=== PATIENT | female | born 1975 | race Caucasian/White ===

== ENCOUNTER 2018-12-12 12:19 | Inpatient (IN) | payer MEDICAID ==
[~2018-12-12] VITALS: Ht 167.6 cm; Wt 64.9 kg
[2018-12-12 12:24] VITALS: Ht 167.6 cm; Wt 64.9 kg
--- NOTE | 2018-12-12 12:45 | NUR ---
PT PRESENTS TO ED WITH C/O OF ABDOMINAL PAIN SINCE FRIDAY. PT STS SHE ATE ICE CREAM ON FRIDAY AND THAT IS WHEN PAIN BEGAN. PT STS PAIN FEELS LIKE BURNING AND IT RADIATES FROM ABDOMEN TO EPIGASTRIC AREA AND BACKSIDE. PT REPORTS HAVING DECREASE IN APPETITE AND FEELING NAUSEOUS. PT STS SHE ATE BEFORE SHE CAME TO ED. PT REPORTS BEING SEEN FOR SIMILAR PAIN AND BEING DIAGNOSISED WITH GALLSTONES. AMBULATED TO FROM TRIAGE WITH STEADY GAIT, AAOX4, RESP E/U, ON FULL CM, NO ACUTE DISTRESS NOTED AT THIS TIME. MOTHER AT BEDSIDE.
--- NOTE | 2018-12-12 12:53 | NUR ---
PT OFF FLOOR TAKEN FOR XRAY
[2018-12-12 13:08] LABS: microscopic required? NO
--- NOTE | 2018-12-12 13:12 | NUR ---
PT MEDICATED PER ORDER, PT VERBALIZED UNDERSTANDING OF MEDICATION PRIOR TO ADMINISTRATION. ULTRASOUND AT BEDSIDE FOR EVALUATION.
[2018-12-12 13:21] LABS: UA SPECIFIC GRAVITY 1.025 (1.005-1.035); urine erythrocyte NEGATIVE (NEGATIVE)
[2018-12-12 13:35] LABS: PLATELET COUNT 313 x10^3mcL (130-400)
[2018-12-12 13:40] LABS: RED CELL DISTRIBUTION WIDTH 29.4 % (11.5-14.5)
--- NOTE | 2018-12-12 13:46 | NUR ---
PT REQUESTING TO USE RESTROOM, PT AMBULATORY WITH STEADY GAIT TO RESTROOM, NAD NOTED.
[2018-12-12 13:50] LABS: CALCIUM 8.2 mg/dL (8.5-10.1); CARBON DIOXIDE 28.2 mmol/L (21-32); CHLORIDE SERUM 107 mmol/L (98-107); CREATININE SERUM 0.9 mg/dL (0.6-1.0); GFR1 > 60 mL/min; GLUCOSE SERUM 104 mg/dL (74-106); POTASSIUM SERUM 4.6 mmol/L (3.5-5.1); SODIUM SERUM 142 mmol/L (136-145)
[2018-12-12 13:54] LABS: ALKALINE PHOSPHATASE 101 U/L (46-116); ALT/SGPT 90 U/L (14-59); AST/SGOT 47 U/L (15-37); BILIRUBIN TOTAL 0.4 mg/dL (0.20-1.00); CHOLESTEROL 155 mg/dL (<200); HDL CHOLESTEROL 57 mg/dL (40-60); LIPASE 106 IU/L (73-393); TOTAL PROTEIN, SERUM 6.7 g/dL (6.4-8.2)
[2018-12-12 13:56] LABS: ALBUMIN 3.2 g/dL (3.4-5.0)
[2018-12-12 14:12] LABS: BAND NEUTROPHIL 0 % (0-10); BASOPHIL 0 % (0-2); MONOCYTE 4 % (0-7); SEGMENTED NEUTROPHILS 58 % (37-75)
[2018-12-12 14:13] LABS: PLATELET MORPHOLOGY PLATELETS NORMAL; rbc morphology (normal/abnorm) ABNORMAL (NORMAL)
--- NOTE | 2018-12-12 16:02 | NUR ---
PT AMBULATED TO RESTROOM WITH STEADY GAIT, AAOX4, RESP E/U, NO ACUTE DISTRESS NOTED AT THIS TIME. MOTHER AT BEDSIDE.
[2018-12-12] MEDS ORDERED: ZOF4 PO (16:06)
[2018-12-12] MEDS ORDERED: NOR10T PO (16:06)
[2018-12-12 16:37] LABS: MAGNESIUM 2.1 mg/dL (1.8-2.4); PHOSPHOROUS 2.9 mg/dL (2.5-4.9)
[2018-12-12 17:00] LABS: TOTAL IRON BINDING CAPACITY 345 ug/dL (250-450)
[2018-12-12 17:02] LABS: IRON 17 ug/dL (50-170)
--- NOTE | 2018-12-12 17:43 | NUR ---
REPORT GIVEN TO MEERA BEAN ON MED SURG UNIT TO ASSUME CARE OF PT.
--- NOTE | 2018-12-12 17:55 | NUR ---
RECEIVED PT VIA W/C FROM E/D, ACCOMPANIED BY TRANSPORTER AND PT'S MOTHER, SANDY MENDOZA. PT A/A/O X 4, CALM, COOPERATIVE; C/O CONSTANT THROBBING H/A 11/30. AMBULATORY, ABLE TO WALK WITHOUT GAIT OR BALANCE IMPAIRMENT FROM W/C TO BED. DENIES CHEST PAIN OR DISCOMFORT AT THIS TIME. NO ACUTE RESPIRATORY DISTRESS NOTED. ABD SOFT, ROUND, TENDERNESS UPON PALPATION (CONSTANT BURNING BACK PAIN RADIATING TO CHEST AND ABD 11/30), NORMOACTIVE BOWEL SOUNDS X 4 QUADS, LAST BM 12/11/18, FORMED. VOIDS FREELY, NO DYSURIA, C/O DARK ORANGE URINE. IV SITE LAC 20G, CDI. ORIENTED PT AND MOTHER TO ROOM, BED CONTROLS, CALL LIGHT SYSTEM. SIDE RAILS UP X 2, BED IN LOW POSITION. WILL ENDORSE TO MEERA BEAN.
[2018-12-12 18:29] VITALS: BP 151/85
--- NOTE | 2018-12-12 19:10 | NUR ---
REPORT RECEIVED FROM DAY SHIFT RN. PATIENT WAS SEEN AND IS RESTING COMFORTABLY IN BE WITH FAMILY AT BEDSIDE. BREATHING EVEN ON ROOM AIR. NO SOB OR RESP DISTRESS NOTED. DENIES CHEST PAIN. C/O 4/10 HEADACHE AFTER PRN NORCO WAS GIVEN. PATIENT STATES HER PAIN IS TOLERATABLE AT THIS TIME. DENIES N/V. IV TO THE LAC, 20G, INFUSING WELL. PATENT AND INTACT. NO REDNESS OR SWELLING NOTED. COMFORT AND SAFETY MEASURES MAINTAINED. BED IS LOCKED AND IN THE LOWEST POSITION. SIDE RAILS UP X2. CALL LIGHT IS WITHIN REACH. WILL CONTINUE TO MONITOR.
[2018-12-12 20:49] VITALS: BP 135/88
--- NOTE | 2018-12-12 21:26 | NUR ---
DR JULES CALLED AND SAID THE PATIENT WONT BE HAVING SURGERY AND WILL SPEAK WITH THE PATIENT TOMORROW MORNING. PATIENT IS AWARE.
--- NOTE | 2018-12-12 21:50 | NUR ---
PATIENT GOT TAKEN DOWN TO CT.
--- NOTE | 2018-12-12 22:01 | NUR ---
PATIENT BACK FROM CT. RESTING IN BED COMFORTABLY. IVF INFUSING WELL. NO DISTRESS NOTED. BREATHING EVEN ON ROOM AIR. NO C/O PAIN. CALL LIGHT IS WITHIN REACH. WILL CONTINUE TO MONITOR.
--- NOTE | 2018-12-12 23:17 | NUR ---
RADIOLOGY CALLED ABOUT CRITICAL CT ABD RESULTS. PAGE GATED DR CORONADO THAT THE RESULTS CAME BACK CRITICAL.
--- NOTE | 2018-12-13 01:39 | NUR ---
PATIENT IS RESTING IN BED WITH EYES CLOSED. NO DISTRESS NOTED. BREATHING EVEN ON ROOM AIR. IVF INFUSING WELL. SAFETY MEASURES IN PLACE. CALL LIGHT IS WITHIN REACH. WILL CONTINUE TO MONITOR.
[2018-12-13 05:23] VITALS: BP 110/62
[2018-12-13 05:35] VITALS: BP 110/62; BP 111/71
--- NOTE | 2018-12-13 05:38 | NUR ---
PATIENT C/O 4/10 CHEST PAIN RADIATING TO HER LEFT ARM. PATIENT STATES THIS IS THE SAME PAIN SHE HAD WHEN SHE WAS ADMITTED. (TROP NEGATIVE). OFFERRED PRN PAIN MED, BUT PATIENT REFUSED BECAUSE SHE SAID IT'S MAKES HER NAUSEOUS. ALSO OFFERED PRN ZOFRAN, BUT PATIENT ALSO REFUSED. PATIENT REQUEST JELLO BECAUSE SHE HASNT EATED ANYTHING. AFTER PATIENT ATE YELLOW JELLO, SHE STATES THAT SHE FEELS BETTER. WILL CONTINUE TO MONITOR.
--- NOTE | 2018-12-13 05:46 | NUR ---
PATIENT SLEPT IN LONG INTERVALS THROUHGOUT THE NIGHT. NO ACUTE CHANGES NOTED. BREATHING EVEN ON ROOM AIR. NO DISTRESS NOTED. PATIENT IS FEELING BETTER AFTER JELLO WAS EATEN. C/O 4/10 TOLERABLE PAIN X2 THROUGHOUT THE NIGHT. NO PAIN MEDS GIVEN. IVF INFUSING WELL. SAFETY MEASURES IN PLACE. CALL LIGHT IS WITHIN REACH. WILL ENDORSE CARE TO DAY SHIFT RN.
[2018-12-13 08:00] LABS: BASOPHIL % 0.7 % (0-2); PLATELET COUNT 311 x10^3mcL (130-400)
--- NOTE | 2018-12-13 08:00 | NUR ---
PATIENT RECEIVED WITH FAMILY AT BEDSIDE. PATIENT HAS BEEN ADVISED SHE IS NOT GOING TO HAVE SURGERY AT THIS TIME. SHE HAS BEEN WITH INTERMITTANT PAIN TO THE ABDOMEN AND BACK. SHE HAS BEE WITH BRP AND URINATING WELL. STARTED ON CLEAR LIQUID DIET AND NO NAUSEA AT THIS TIME. PULSES PALPABLE AND LUNGS ARE CLEAR AND BOWEL SOUNDS ACTIVE. SHE IS IN NO ACUTE DISTRESS AT THIS TIME.
[2018-12-13 08:01] LABS: RED CELL DISTRIBUTION WIDTH 29.4 % (11.5-14.5)
[2018-12-13 08:02] LABS: rbc morphology (normal/abnorm) ABNORMAL (NORMAL)
[2018-12-13 08:08] LABS: ALBUMIN 2.9 g/dL (3.4-5.0); ALKALINE PHOSPHATASE 120 U/L (46-116); ALT/SGPT 137 U/L (14-59); AST/SGOT 110 U/L (15-37); CALCIUM 8.4 mg/dL (8.5-10.1); CARBON DIOXIDE 23.2 mmol/L (21-32); CHLORIDE SERUM 109 mmol/L (98-107); CREATININE SERUM 0.8 mg/dL (0.6-1.0); GFR1 > 60 mL/min; GLUCOSE SERUM 102 mg/dL (74-106); PHOSPHOROUS 3.3 mg/dL (2.5-4.9); POTASSIUM SERUM 4.7 mmol/L (3.5-5.1); SODIUM SERUM 141 mmol/L (136-145); TOTAL PROTEIN, SERUM 6.6 g/dL (6.4-8.2)
[2018-12-13 08:48] VITALS: BP 125/81
--- NOTE | 2018-12-13 09:06 | NUR ---
SENT MESSAGE TO THE SS THE PATIENT WAS REFUSED INSURANCE THROUGH MEDICAL. PATIENT HAS WANTING TO HAV ETHE GALLBLADDER SURGERY BUT WITHOUT INSURANCE AND WITHOUT THE URGENCY SHE HAS NO PLAN FOR HAVING AT THIS TIME. PATIENT WANTS ASSISTANCE IN SETTING UP INSURANCE.
--- NOTE | 2018-12-13 10:39 | NUR ---
PATIENT WAS SEEN BY THE SURGEON AND SHE IS OK FOR DISCHARGE PER THE SURGEON THE LABS ARE NORMAL. PATIENT TO HAVE LIQUID DIET AND TO AWAIT THE PRIMARY RESIDENT TO DISCHARGE HER HOME TODAY. RUNING THE [facility] IVPB ORDERED.
[2018-12-13] MEDS ORDERED: FLA500 PO (13:26)
[2018-12-13] MEDS ORDERED: LEVOFLOXACIN500 M1 PO (13:26)
[2018-12-13] MEDS ORDERED: MOT800 PO (13:27)
[2018-12-13] MEDS ORDERED: COLACE100 MG PO (14:08)
[2018-12-13] MEDS ORDERED: NATURAL IRON65 MG PO (14:11)
--- NOTE | 2018-12-13 14:23 | NUR ---
ORDERS NOTED FOR DISCHARGE. PATIENT WAS SEEN BY THE SURGEON AND HAD SENT A MESSAG FOR ASSIST FROM CASHIER COURTESY BOOTH ABOUT OBTAIN INFORMATION ON THE ISSURANCE NEEDS. WHEN PAPERWORK IS COMPLETE PATIENT WILL BE DISCHARGE TO HOME. NO ACUTE DISTRESS AT THIS TIME.
[2018-12-13 14:37] VITALS: BP 125/81
== END 2018-12-13 15:15 | disposition home or self-care (01) | DRG 445 ==
LOC: ED 12:19 → MU 15:50
PROVIDERS: Emergency Medicine; ADMIT General Practice
DX: K80.62 Calculus of gallbladder and bile duct with acute cholecystitis without obstruction (principal); E44.0 Moderate protein-calorie malnutrition; R74.0 Nonspecific elevation of levels of transaminase and lactic acid dehydrogenase [LDH]; E83.51 Hypocalcemia; D50.9 Iron deficiency anemia, unspecified; Z98.891 History of uterine scar from previous surgery; Z82.49 Family history of ischemic heart disease and other diseases of the circulatory system; Z83.3 Family history of diabetes mellitus; Z68.23 Body mass index [BMI] 23.0-23.9, adult
CPT/HCPCS: G0378; J1885; J2543; J7030; Q0092